=== PATIENT | female | born 1985 | race Caucasian/White ===

== ENCOUNTER → 2019-08-10 | Outpatient (CLI) | payer BC ==
[~2019-08-10] MED LIST: HOLD METFORMIN - RECEIVED CONTRAST 20 ML VIAL IV SCH; IOHEXOL 350 MG/ML 100 ML (OMNIPAQUE 350) VIAL IV ONE; NS 100 ML (IVPB) BAG IV ONE; diphenhydrAMINE 50 MG/ML INJ (BENADRYL) IM ONE; diphenhydrAMINE 50 MG/ML INJ (BENADRYL) ONE
--- NOTE | 2019-08-10 16:58 | Diagnostic Imaging Report ---
PROCEDURE: CT abdomen and pelvis with and without contrast. TECHNIQUE: Precontrast acquisitions were acquired through the abdomen and pelvis. Multiple contiguous axial images were obtained through the abdomen and pelvis after the administration of intravenous contrast. Auto Exposure Controls were utilized during the CT exam to meet ALARA standards for radiation dose reduction. INDICATION: Lower right flank pain with extension into the right inguinal region. COMPARISON: None. FINDINGS: The included portions of the lung bases show a 4 mm subpleural micronodule within the anterior margins of the right middle lobe (image 3, series 2). CT ABDOMEN: A normal appendix cannot be adequately identified and may be surgically absent. The small bowel loops are nondistended. A nonobstructive left renal calculus is noted. No renal calculi are seen on the right. The ureters cannot be followed in their entirety but no calculi are seen along the expected course of either ureter. Additionally, there is no hydroureteronephrosis or other evidence of obstruction. Benign-appearing bilateral renal cysts are noted. The adrenal glands, spleen, and pancreas have a normal CT appearance. There is a focal area of decreased attenuation and enhancement of the left lobe adjacent to the falciform ligament, consistent with focal fatty infiltrate. Otherwise, the liver is unremarkable as well. There is no loculated fluid collection, free fluid, or free air within the abdomen. No abnormal mesenteric or retroperitoneal adenopathy is seen. The osseous structures show no acute abnormalities. CT PELVIS: A radiopaque marker was placed in the anterior right inguinal region in the patient's area of palpable concern. No focal soft tissue masses or abnormal fluid collections are identified. There is no evidence of focal hernia. The urinary bladder is unopacified. No calculi are seen within the urinary bladder. There is no loculated fluid collection, free fluid, or free air within the pelvis. No abnormal lymph nodes are identified. The osseous structures show no acute abnormalities. IMPRESSION: 1. No focal soft tissue masses, fluid collections, or other abnormalities are seen to correspond to the patient's palpable area of concern in the anterior right inguinal region. Please note, subcutaneous lipomas may be inconspicuous on CT. Further characterization with focused sonographic evaluation may be of benefit. 2. Nonobstructive left renal calculus. 3. Focal fatty infiltrate of the left lobe of the liver. 4. Benign-appearing bilateral renal cysts. 5. Small micronodule within the included portions of the right middle lobe. If the patient is in a high-risk category such as history of smoking, one may want to consider a 1 year followup to ensure stability. Dictated by: Dictated on workstation # [id number]
== END ==
LOC: RAD 11:04
PROVIDERS: ATTEND Family Medicine
DX: N20.0 Calculus of kidney (principal); K76.0 Fatty (change of) liver, not elsewhere classified; N28.1 Cyst of kidney, acquired; R91.1 Solitary pulmonary nodule
CPT/HCPCS: 74178

== ENCOUNTER → 2020-02-07 | Outpatient (CLI) | payer BC ==
--- NOTE | 2020-02-07 13:59 | Diagnostic Imaging Report ---
INDICATION: Routine screening. COMPARISON: No prior mammograms are available for comparison. This is a baseline study. TECHNIQUE: 2D and 3D bilateral screening mammography was performed with CAD. FINDINGS: Both breasts are heterogeneously dense, limiting the sensitivity of mammography. A circumscribed density is identified in the upper and inner aspect of the right breast, best seen on tomographic images. The density is located approximately 5 cm from the nipple. The left breast is unremarkable. No spiculated mass or malignant appearing microcalcifications are seen. The axillae are unremarkable. IMPRESSION: Circumscribed density in the upper inner right breast. This has benign features and may represent a cyst or fibroadenoma. Further evaluation with ultrasound is recommended. ACR BI-RADS Category 0: Incomplete. (Needs additional imaging evaluation). Result letter will be mailed to the patient. Note: At least 10% of breast cancer is not imaged by mammography. Dictated by: Dictated on workstation # [id number]
== END ==
LOC: RAD 09:09
PROVIDERS: ATTEND Family Medicine
DX: Z12.31 Encounter for screening mammogram for malignant neoplasm of breast (principal)
CPT/HCPCS: 77063; 77067

== ENCOUNTER → 2020-02-15 | Outpatient (CLI) | payer BC ==
--- NOTE | 2020-02-15 10:19 | Diagnostic Imaging Report ---
INDICATION: Right breast density. Patient presents for further evaluation. COMPARISON: Correlation is made with the screening mammogram from 02/07/2020. TECHNIQUE: Sonographic interrogation of the upper and inner aspect of the right breast was performed. There is a tiny approximately 7 mm x 3 mm cyst at the 12 o'clock location 3 cm from the nipple. No definite nodule is identified in the upper inner right breast to correspond to the mammographic density. The mammographic density does, however, appear benign. No suspicious abnormality is seen. IMPRESSION: No suspicious sonographic abnormality is identified. A followup right mammogram in 6 months is recommended to confirm stability. ACR BI-RADS Category 3: Probably benign findings. Result letter will be mailed to the patient. Note: At least 10% of breast cancer is not imaged by mammography. Dictated by: Dictated on workstation # [id number]
== END ==
LOC: RAD 08:36
PROVIDERS: ATTEND Family Medicine
DX: N60.01 Solitary cyst of right breast (principal)

== ENCOUNTER → 2020-09-28 | Outpatient (CLI) | payer BC ==
--- NOTE | 2020-09-28 14:33 | Diagnostic Imaging Report ---
INDICATION: Right breast density. Patient presents for six-month follow-up. Correlation is made with prior exam from 02/07/2020. Unilateral right 2-D and 3-D diagnostic mammography was performed with CAD. Right breast remains heterogeneously dense, limiting sensitivity of mammography. Circumscribed nodule in the upper inner right breast at mid depth persists and shows no real change. No new mass is seen. No malignant appearing microcalcifications are identified. IMPRESSION: BI-RADS Category 0 Stable circumscribed nodule upper inner right breast mid depth. Further evaluation with ultrasound is recommended will be performed today. ACR BI-RADS Category 0: Incomplete. (Needs additional imaging evaluation). Result letter will be mailed to the patient. Note: At least 10% of breast cancer is not imaged by mammography. Dictated by: Dictated on workstation # [id number]
--- NOTE | 2020-09-28 15:45 | Diagnostic Imaging Report ---
INDICATION: Right breast density. CORRELATION is made with diagnostic mammogram earlier the same day as well as prior mammogram from 02/07/2020. Sonographic interrogation at the 2 o'clock location right breast was performed. There is a circumscribed, macrolobulated hypoechoic solid nodule 4 cm from the nipple measuring 8 mm x 6 mm x 5 mm. No internal vascularity is present. No posterior acoustic shadowing is present. No other masses are identified. This likely accounts for the circumscribed nodule noted on mammogram. IMPRESSION: BI-RADS Category 3. Circumscribed, macrolobulated solid nodule at the 2 o'clock location right breast, 4 cm from the nipple, corresponding with the mammographic abnormality. This has benign features and is most consistent with a fibroadenoma. This now shows 6 months of stability when compared with prior mammogram. Additional six-month follow-up for a 2 year interval is recommended to confirm stability. If patient elects, we could undergo ultrasound-guided core biopsy. Dictated by: Dictated on workstation # [id number]
== END ==
LOC: RAD 14:15
PROVIDERS: ATTEND Family Medicine
DX: N63.12 Unspecified lump in the right breast, upper inner quadrant (principal)
CPT/HCPCS: 76642; 77065; G0279

== ENCOUNTER 2020-10-15 05:35 | Outpatient (RCR) | payer BC ==
[~2020-10-15] VITALS: Ht 170.2 cm; Wt 88.6 kg
[~2020-10-15 05:35] MED LIST changes: +ESCI-2 PO; +ESTR1TAB24 PO; +ESTR2TAB PO; -HOLD METFORMIN - RECEIVED CONTRAST 20 ML VIAL IV SCH; -IOHEXOL 350 MG/ML 100 ML (OMNIPAQUE 350) VIAL IV ONE; +LEVO5TAB28 PO; -NS 100 ML (IVPB) BAG IV ONE; +TRZ50T PO; -diphenhydrAMINE 50 MG/ML INJ (BENADRYL) IM ONE; -diphenhydrAMINE 50 MG/ML INJ (BENADRYL) ONE
[2020-10-17] MEDS ORDERED: ACHD5005 PO (09:57)
== END 2020-10-15 10:04 | disposition home or self-care (01) ==
LOC: PREOP 05:35
PROVIDERS: ATTEND Surgery
DX: Z01.812 Encounter for preprocedural laboratory examination (principal); N63.10 Unspecified lump in the right breast, unspecified quadrant; Z20.822 Contact with and (suspected) exposure to COVID-19
CPT/HCPCS: 87635

== ENCOUNTER 2020-10-17 07:11 | Day surgery (SDC) | payer BC ==
[2020-10-17] VITALS (11 sets, daily range): BP systolic 114–148; BP diastolic 68–76
[~2020-10-17] VITALS: Ht 170.2 cm; Wt 88.6 kg
[2020-10-17] MEDS ORDERED: ceFAZolin INJECTION 1,000 MG in WATER (STERILE) FOR INJECTION 10 ML IV ONE (07:30)
[2020-10-17] MEDS ORDERED: LIDOCAINE 1% INJ 20 ML 20 ML VIAL INJ ONE (08:00)
[2020-10-17] MEDS: LACTATED RINGERS 1,000 ML IV PRN ×2 (08:15→09:55)
[2020-10-17] MEDS ORDERED: ONDANSETRON 4 MG/2 ML (SDV) Z0FRAN ONE (08:22)
[2020-10-17] MEDS ORDERED: LIDOCAINE PF 2% 5 ML (XYLOCAINE) VIAL ONE (08:22)
[2020-10-17] MEDS ORDERED: proPOfol 200 MG/20 ML (DIPRIVAN) VIAL IV ONE (08:22)
[2020-10-17] MEDS ORDERED: SEVOFLURANE (ULTANE) 15 ML INHAL SOLN ONE (08:22)
[2020-10-17] MEDS ORDERED: MIDAZOLAM 2 MG/2 ML (VERSED) VIAL ONE (08:23)
[2020-10-17] MEDS ORDERED: fentaNYL INJECTION 100 MCG/2 ML AMP ONE (08:23)
[2020-10-17] MEDS ORDERED: LIDOCAINE/EPI 1%-1:100,000 (XYLOCAINE) 50 ML ONE (08:30)
--- NOTE | 2020-10-17 09:06 | Progress Note-Pre Operative ---
Pre-Operative Progress Note H&P Reviewed The H&P was reviewed, patient examined and no changes noted. Time Seen by Provider: 09:02 Date H&P Reviewed: Oct 17, 2020 Time H&P Reviewed: 09:03 Pre-Operative Diagnosis: Right breast mass, right side marked RON JUAREZ DO Oct 17, 2020 09:06
[2020-10-17] MEDS ORDERED: ACHD5005 PO (09:57)
--- NOTE | 2020-10-17 09:57 | Progress Note-Post Operative ---
Post-Operative Progess Note Surgeon (s)/Reversing Mill Roller (s) Surgeon RON JUAREZ DO Reversing Mill Roller: BERTO García Pre-Operative Diagnosis Right breast mass, right side marked Post-Operative Diagnosis same pending pathology Procedure & Operative Findings Date of Procedure 10/17/20 Procedure Performed/Findings Exc Right breast mass with needle localization Anesthesia Type LMA Estimated Blood Loss Estimated blood loss (mL): scant Specimens/Packing Specimens Removed right breast mass with needle RON JUAREZ DO Oct 17, 2020 09:57
--- NOTE | 2020-10-17 09:59 | Discharge Inst-Surgical ---
Discharge Inst-Surgical Depart Medication/Instructions New, Converted or Re-Newed RX: RX Given to Pt/Family Patient Instructions Follow up Appt: Make appointment for 1 week. [phone] Instructions: No lifting greater than 20 pounds. No strenuous activity. May shower in 24 hours, no tub bath or soaking. Use incentive spirometer at home as directed. No Smoking Skin/Wound Care: May remove bandages in am. You need to leave the Dermabond on incision it will fall off on it's own. Symptoms to Report: Appetite Changes, Extremity Discoloration, Numbness/Tingling, Swelling Increased, Bleeding Excessive, Eyesight Changes, Pain Increased, Urine Color Change, Constipation(Persistent), Fever over 101 degree F, Pain/Pressure in chest, Urinating Difficulty, Cough Up/Vomit Blood, Heart Beat Irreg/Pounding, Pain/Pressure in jaw, Cramps in feet or legs, Lightheadedness, Pain/Pressure in shoulder, Diarrhea(Persistent), Memory Changes Suddenly, Questions/Concerns, Weight gain consecutive days, Dizziness/Fainting, Nausea/Vomiting, Shortness of Breath, Weight gain over 2 pounds If questions or concerns contact your physician Or seek help at emergency department. Activity Activity as Tolerated: Yes Activity Instructions: Avoid Stress to Incision Driving Instructions: No Driving/Refer to Dr. Medina Discharge Diet: No Restrictions Diet After 24 Hours: Clear Liquid if Nauseous If Any Problems/Questions/Issu: Contact Your Physician, Go to Emergency Room Skin/Wound Care Infection Signs and Symptoms: Increased Redness, Foul Odor of Wound, Increased Drainage, Skin Itchy or Has a Rash, Increased Swelling, Temperature Above 101 F Wound Care Comment: Wear a tight fitting bra 24 hours a day for next week, can take off to shower. Bathing Instructions: Shower Stitches/Avtar/Dermabond Dis: Dermabond Ice Pack: Ice On and Off Site (for pain) RON JUAREZ DO Oct 17, 2020 09:59
[2020-10-17] MEDS ORDERED: morphine INJ 10 MG/ML 1ML (SYR OR VIAL) IVP ONE (10:15)
[2020-10-17] MEDS ORDERED: ONDANSETRON 4 MG/2 ML (SDV) Z0FRAN IVP PRN (10:15)
--- NOTE | 2020-10-17 10:35 | Diagnostic Imaging Report ---
Right diagnostic mammogram INDICATION: Post needle localization The prior mammogram of 09/28/2020 there is a small asymmetry in the medial aspect of the right breast. This area was localized for biopsy purposes earlier today. On this exam the localization wire is seen in the region of the small asymmetry. IMPRESSION: The localization wire appears to be in the region of concern. A specimen radiograph would be recommended. Dictated by: Dictated on workstation # [id number]
--- NOTE | 2020-10-17 10:37 | Diagnostic Imaging Report ---
Ultrasound-guided needle localization Indication: Breast mass The recent right breast ultrasound exam performed on 09/28/2020 noted a 8 x 6 x 5 mm circumscribed microlobulated solid nodule in the 2 o'clock position approximately 4 cm from the nipple. Following aseptic preparation of the skin and administration of local anesthesia this area was localized for biopsy purposes using a 5 cm Kopans needle. The final images reveal that the tip of the localization wire is imbedded within the lesion. The patient tolerate procedure well and was dismissed in good condition. Impression: 1. There has been a successful localization of the hypoechoic lesion in the 2 o'clock position of the right breast. 2. A final pathology report is pending. Dictated by: Dictated on workstation # [id number]
--- NOTE | 2020-10-17 14:36 | Anesthesia-General Post-Op ---
General Patient Condition Mental Status/LOC: Same as Preop Cardiovascular: Satisfactory Nausea/Vomiting: Absent Respiratory: Satisfactory Pain: Controlled Complications: Absent Post Op Complications Complications None Follow Up Care/Instructions Patient Instructions None needed. Anesthesia/Patient Condition Patient Condition Patient was seen after the procedure and she was doing well, no complaints, stable vital signs, no apparent adverse anesthesia problems. SAM GRIMES DO Oct 17, 2020 14:36
--- NOTE | 2020-10-17 14:48 | OPERATIVE REPORT ---
DATE OF SERVICE: PREOPERATIVE DIAGNOSIS: Right breast mass. POSTOPERATIVE DIAGNOSIS: Right breast mass, pending pathology. PROCEDURE: Excision of right breast mass with needle localization. SURGEON: Preston Lilly DO TRANSPORTATION ASSOCIATE: Ebony Boateng MS4. ANESTHESIA: LMA. SPECIMEN: Right breast mass. BLOOD LOSS: Scant. FLUIDS: Per anesthesia. POSTOPERATIVE CONDITION: Stable. INDICATION FOR PROCEDURE: The patient is a 34-year-old female who has a history of previous breast mass removal. She had a mass in the right breast near where the area she had a previous one removed and it had grown in size. She did not want a biopsy, she wanted it completely removed. FINDINGS: The patient had a right breast mass localized with needle and removed and sent to pathology. PROCEDURE NOTE: After informed consent was obtained, the patient was first sent to radiology to have an ultrasound performed to place the needle. I looked at the ultrasound, could see that the needle was right either through or next to this mass, the right sided marked prior to surgery. She was then brought to the operating room, placed on the operating table in supine position, sterilely prepped and draped in normal fashion. The mass was palpated and the needle was coming in the upper inner quadrant, right about the 2 o'clock line, could feel what felt like a lump and the needle, infiltrated directly over this with local lidocaine and then around the area in a regional block. We made an incision with #15 blade, a concentric line, curvilinear to go along with the folds of the breast, #15 blade used, carried down through the skin into subcutaneous tissue, deepened down to subcutaneous tissue with Bovie electrocautery, creating flaps in either direction to be able to get down, then able to grasp the tissue surrounding the needle, had brought the needle through the skin into the incision and then grasped the tissue surrounding the needle and then dissected around this with Bovie electrocautery, able to completely remove this, looked like there was a small whitish area. There was probably the mass, right next to the needle. This was sent to pathology, felt around, did not really feel anything, but saw a little bit more tissue, elected to grasp this with Allis, dissect around this and then passed this off the table. Hemostasis obtained using Bovie electrocautery. Copiously irrigated with sterile water and then palpated around again, did not feel any further masses and at this point, elected to close the incision, closing with 4-0 undyed Monocryl, 3 interrupted subcuticular stitches and closed the skin with Dermabond and then pressure and fluff dressing placed. The patient tolerated the procedure. Sponge, instrument and needle count correct at the end of the case. She was transferred to recovery room in stable condition. Job ID: [id number] DocumentID: [id number] Dictated Date: 10/17/2020 11:16:16 Change Control Analyst Date: 10/17/2020 14:46:42 Dictated By: PRESTON LILLY DO
--- NOTE | 2020-10-18 07:22 | Diagnostic Imaging Report ---
Digital right breast surgical specimen. INDICATION: Surgical specimen from OR Single surgical specimen was received from the right breast from the OR. The specimen contains the localization wire and a vague area of slight increased density. I do suspect that the area in question has been adequately sampled. IMPRESSION: 1. The area in question appears to have been adequately sampled. A final pathology report is pending. 2. These results were discussed with Dr. Parikh. Dictated by: Dictated on workstation # [id number]
== END 2020-10-17 12:05 | disposition home or self-care (01) ==
LOC: SDC 07:11
PROVIDERS: ATTEND Surgery
DX: D24.1 Benign neoplasm of right breast (principal); F41.9 Anxiety disorder, unspecified; E66.9 Obesity, unspecified; Z68.30 Body mass index [BMI] 30.0-30.9, adult; Z79.899 Other long term (current) drug therapy; Z91.041 Radiographic dye allergy status; Z91.013 Allergy to seafood
CPT/HCPCS: 19120; 19285; 76098; 77065; 87081; 88305; 88307; G0279

== ENCOUNTER 2021-02-16 20:14 | Emergency (ER) | payer BC ==
[~2021-02-16] VITALS: Ht 170.1 cm; Wt 88.6 kg
[~2021-02-16 20:14] MED LIST changes: +ACHD5005 PO
--- NOTE | 2021-02-16 20:44 | ED General ---
General Chief Complaint: Allergic Reaction Stated Complaint: ALLERGIC REACTION Source of Information: Patient Exam Limitations: No Limitations History of Present Illness Date Seen by Provider: Feb 16, 2021 Time Seen by Provider: 20:14 Initial Comments To ER by private vehicle accompanied by state wilkins who met them on the highway. He escorted him to the hospital. Patient was out with her boyfriend eating when he states that she quit talking and stated that she had trouble breathing. He states there was no rash. He then loaded her into the car and called the patient's mother who met them on the highway as well with her own epinephrine pen. She gave the patient intramuscular epinephrine and they proceeded to the hospital. Upon arrival patient is being carried in and is limp accompanied by boyfriend and once arriving at the ER doors collapses at the floor and was carried the rest of the way by a supervisor insecticide and the patient's boyfriend. Mother reports that patient has a history of shellfish allergy that resulted from an IV contrast overdose. They just moved here. Mother reports that patient also has a history of anxiety. They also gave her 4 Benadryl tablets in route to the hospital. Timing/Duration: 1/2 Hour Severity: Moderate Associated Systoms: Denies Symptoms Allergies and Home Medications Allergies Coded Allergies: Iodinated Contrast Media (Verified Allergy, Unknown, Anaphylaxis, 10/12/20) shellfish derived (Verified Allergy, Unknown, 10/12/20) Home Medications Escitalopram Oxalate 10 Mg Tablet, 10 MG PO DAILY, (Reported) Estradiol 1 Mg Tablet, 1 MG PO DAILY, (Reported) Estradiol 2 Mg Tablet, 2 MG PO DAILY, (Reported) Hydrocodone Bit/Acetaminophen 1 Tab Tab, 1 TAB PO Q8H PRN for PAIN-MODERATE (5- 7) Prescribed by: RON JUAREZ on 10/17/20 0957 Levocetirizine Dihydrochloride 5 Mg Tablet, 5 MG PO DAILY, (Reported) Trazodone HCl 50 Mg Tablet, 50 MG PO HS, (Reported) Patient Home Medication List Home Medication List Reviewed: Yes Review of Systems Review of Systems Constitutional: see HPI EENTM: see HPI Respiratory: no symptoms reported Cardiovascular: no symptoms reported Genitourinary: no symptoms reported Musculoskeletal: no symptoms reported Skin: no symptoms reported Hematologic/Lymphatic: No Symptoms Reported Past Gkjzjvr-Jybrvg-Zesmuy Hx Patient Social History Alcohol Use: Denies Use Recent Hopitalizations: No Seasonal Allergies Seasonal Allergies: No Past Medical History Surgeries: Yes (R knee scope, c/s x2, DXLS, R breast lumpectomy) Appendectomy, Hysterectomy Respiratory: No Currently Using CPAP: No Currently Using BIPAP: No Cardiac: No Neurological: No Genitourinary: No Gastrointestinal: No Musculoskeletal: No Endocrine: No HEENT: No (glasses) Cancer: No Psychosocial: Yes Anxiety Integumentary: No Blood Disorders: No Physical Exam Vital Signs Capillary Refill : Height, Weight, BMI Height: '" Weight: lbs. oz. kg; 30.58 BMI Method: General Appearance: Anxious, Other (Arrives to ER, keeps eyes closed, tachypneic, tachycardic. Respiratory rate in the 30s with somewhat stridor like upper airway sounds. However when advised to slow her breathing (because she reports that her hands and feet are tingling) the sounds disappear. She is without wheezing or stridor after she was asked to slow her breathing. She has good air movement. Her heart rate over the next few minutes fell from 125 down to 85. Her oxygen is 100% on room air. Her blood pressure was 170/90. There is no rash.) Eyes: Bilateral Eye Normal Inspection, Bilateral Eye PERRL, Bilateral Eye EOMI Neck: Full Range of Motion, Normal Inspection Respiratory: No Accessory Muscle Use, No Respiratory Distress Cardiovascular: Normal Peripheral Pulses, Tachycardia Gastrointestinal: Non Tender, Soft Extremity: Normal Capillary Refill, Normal Inspection Neurologic/Psychiatric: Alert, Oriented x3 Skin: Normal Color, Warm/Dry Progress/Results/Core Measures Suspected Sepsis SIRS Temperature: Pulse: Respiratory Rate: Blood Pressure / Mean: Results/Orders Vital Signs/I&O Capillary Refill : Departure Communication (Admissions) 2042-It would seem that while eating out with her boyfriend she had a panic attack which was believed to be an allergic reaction and was treated with epinephrine which made her panic attack worse. After about 15 minutes in the emergency room and administration of Pepcid and Solu-Medrol her respiratory rate has slowed to normal, her heart rate has fallen to normal, her blood pressure has fallen to normal and her breathing is more normal. driver's license reviewing officer is still here. Impression Primary Impression: Allergic reaction Additional Impression: Anxiety Disposition: 01 HOME, SELF-CARE Condition: Stable Departure-Patient Inst. Decision time for Depature: 20:44 Referrals: VIRGIL SHAFFER MD (PCP/Family) Primary Care Physician Patient Instructions: Food Allergy, Anxiety, Adult (DC) Scripts Epinephrine (Epinephrine) 0.3 Mg/0.3 Ml Auto.injct 0.3 MG IJ PRN PRN for anaphylaxis, #2 EA Prov: BAN MARTINEZ APRN 02/16/21 BAN MARTINEZ APRN Feb 16, 2021 20:44
[2021-02-16] MEDS ORDERED: EPIN0.3P18 IJ (20:45)
[2021-02-16 20:52] LABS: BASOPHILS # (AUTO) 0.1 10^3/uL (0.0-0.1); BASOPHILS % (AUTO) 1 % (0-10); EOSINOPHILS # (AUTO) 0.1 10^3/uL (0.0-0.3); EOSINOPHILS % (AUTO) 1 % (0-10); HEMATOCRIT 42 % (35-52); HEMOGLOBIN 13.3 g/dL (11.5-16.0); LYMPHOCYTES # (AUTO) 6.2 10^3/uL (1.0-4.0); LYMPHOCYTES % (AUTO) 42 % (12-44); MEAN CORPUSCULAR HEMOGLOBIN 26 pg (25-34); MEAN CORPUSCULAR HGB CONC 32 g/dL (32-36); MEAN CORPUSCULAR VOLUME 81 fL (80-99); MEAN PLATELET VOLUME 10.1 fL (9.0-12.2); MONOCYTES % (AUTO) 7 % (0-12); NEUTROPHILS # (AUTO) 7.1 10^3/uL (1.8-7.8); NEUTROPHILS % (AUTO) 49 % (42-75); PLATELET COUNT 331 10^3/uL (130-400); WHITE BLOOD COUNT 14.6 10^3/uL (4.3-11.0)
[2021-02-16] MEDS ORDERED: methylPREDNISolone 125 MG (Solu-MEDROL) VIAL IVP ONE (21:00)
[2021-02-16] MEDS ORDERED: FAMOTIDINE 20MG/2ML IV (PEPCID) IVP ONE (21:00)
[2021-02-16 21:05] LABS: BUN/CREATININE RATIO 11; CALCIUM 10.3 MG/DL (8.5-10.1); CARBON DIOXIDE 23 MMOL/L (21-32); CHLORIDE 102 MMOL/L (98-107); CREATININE SERUM 0.97 MG/DL (0.60-1.30); GFR ESTIMATED > 60; GLUCOSE 117 MG/DL (70-105); POTASSIUM 2.9 MMOL/L (3.6-5.0); SODIUM 140 MMOL/L (135-145)
[2021-02-16] MEDS ORDERED: KCL 20 MEQ TAB (K-DUR) PO ONE (21:15)
[2021-02-16 21:50] VITALS: BP 127/80
[2021-02-16 22:13] LABS: LYMPHOCYTES % (MANUAL) 50 %; MONOCYTES % (MANUAL) 3 %; NEUTROPHILS % (MANUAL) 47 %; RBC MORPH NORMAL
== END 2021-02-16 21:52 | disposition home or self-care (01) ==
LOC: EDUNIT# 20:16 → ER 20:18
DX: T78.1XXA Other adverse food reactions, not elsewhere classified, initial encounter (principal); F41.9 Anxiety disorder, unspecified
CPT/HCPCS: 36415; 80048; 84703; 85007; 85027

== ENCOUNTER 2021-07-13 13:32 | Emergency (ER) | payer BC ==
[~2021-07-13] VITALS: Ht 170 cm; Wt 95.2 kg
[~2021-07-13 13:32] MED LIST changes: +EPIN0.3P18 IJ; -ESTR2TAB PO; +ESTR2TAB3 PO
--- OUTSIDE RECORDS SUMMARY | 2021-07-13 13:38 | XMS REPORT | Clinical Summary ---
Author Author [facility] Address Unknown Phone Unavailable Care Team Providers Care School Bus Mechanic Name Role Phone PCP Unavailable Allergies Comments Active Allergy Reactions Severity Noted Date Anaphylaxis Iodine Anaphylaxis Shellfish-Derived Products Medications End Date Status Medication Sig Dispensed Refills Start Date Active Multiple Vitamin One orally 0 0 (MULTI-VITAMINS) TABS daily 8 Active amoxicillin-clavulanate One orally 20 0 (AUGMENTIN) 875-125 MG twice daily 9 Active .reconcile (MEDICATION No Sig 1 0 LIST IMPORTED) 3 Active Problems Not on file Social History Date Tobacco Use Types Packs/Day Years Used Never Assessed Sex Assigned at Date Recorded Not on file Last Filed Vital Signs Reading Time Taken Comments Vital Sign 110/80 02/02/2009 3:40 PM CDT Blood Pressure - - Pulse - - Temperature - - Respiratory Rate - - Oxygen Saturation - - Inhaled Oxygen Concentration 94.6 kg (208 lb 8 oz) 02/02/2009 3:40 PM CDT Weight 168.9 cm (5' 6.5") 09/12/2008 8:50 AM REFINERY OPERATOR VISBREAKING Height 33.15 09/12/2008 8:50 AM REFINERY OPERATOR VISBREAKING Body Mass Index Plan of Treatment Health Maintenance Due Date Last Done Comments Varicella Vaccines (1 of 12/24/1988 2 - 2-dose childhood series) COVID-19 Vaccine (1) 12/24/1992 Hepatitis C Screening 12/24/2005 DTaP,Tdap,and Td Vaccines 12/24/2006 (1 - Tdap) MMR Vaccines-Adult 12/24/2006 Cervical Cancer Screening 06/22/2011 06/22/2008 Influenza Vaccine (#1) 2021 Pneumo-Vaccine: 65+Yrs (1 12/24/2052 of 1 - PPSV23) HIB Vaccines Aged Out No longer eligible based on patient's age to complete this topic IPV Vaccines Aged Out No longer eligible based on patient's age to complete this topic Meningococcal Vaccine Aged Out No longer eligib le based on patient's age to complete this topic Pneumo-Vaccine: Peds (0-5 Aged Out No longer el igible based on patient's age to Yrs) & At-Risk Patients complete this topic (6-64 Yrs) Rotavirus Vaccines Aged Out No longer eligible based on patient's age to complete this topic Results Not on filefrom Last 3 Months
[2021-07-13] MEDS ORDERED: KETOROLAC 60 MG/2 ML VIAL IM ONE (14:00)
[2021-07-13] MEDS ORDERED: PROCHLORPERAZINE 10 MG/2ML INJ (COMPAZINE) IM ONE (14:00)
[2021-07-13] MEDS ORDERED: diphenhydrAMINE 50 MG/ML INJ (BENADRYL) IVP ONE (14:00)
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
[2021-07-13] MEDS ORDERED: diphenhydrAMINE 50 MG/ML INJ (BENADRYL) IM ONE (14:15)
--- NOTE | 2021-07-13 14:46 | Diagnostic Imaging Report ---
PROCEDURE: CT head without contrast. TECHNIQUE: Multiple contiguous axial images were obtained through the brain without the use of intravenous contrast. Auto Exposure Controls were utilized during the CT exam to meet ALARA standards for radiation dose reduction. INDICATION: Head injury with nausea. COMPARISON: None. FINDINGS: There is no intracerebral hemorrhage. There is no hydrocephalus. There is no calvarial fracture deformity. There is no pneumocephalus. There is no hemosinus. The orbital contents unremarkable. The basilar cisterns are patent. There is no sulcal effacement. There was no evidence for an elevation of the intracerebral pressures. There is no mass or mass effect. Ventricular system nondilated and nondisplaced. IMPRESSION: Unremarkable CT head. No posttraumatic sequelae or acute abnormalities identified. Dictated by: Dictated on workstation # [id number]
[2021-07-13 15:09] VITALS: BP 118/70
== END 2021-07-13 14:57 | disposition home or self-care (01) ==
LOC: EDUNIT# 13:32 → ER 13:34
DX: S06.0X0A Concussion without loss of consciousness, initial encounter (principal); F41.9 Anxiety disorder, unspecified; Z79.899 Other long term (current) drug therapy; W22.8XXA Striking against or struck by other objects, initial encounter
CPT/HCPCS: 70450

== ENCOUNTER 2022-01-18 20:34 | Emergency (ER) | payer BC ==
[~2022-01-18] VITALS: Ht 172.7 cm; Wt 95.0 kg
[2022-01-18] MEDS ORDERED: ONDANSETRON 4 MG/2 ML (SDV) Z0FRAN IVP ONE (21:15)
[2022-01-18] MEDS ORDERED: KETOROLAC 30 MG/ML VIAL IVP ONE (21:15)
[2022-01-18] MEDS ORDERED: NS IV 1000 ML 1,000 ML IV SCH (21:15)
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
[2022-01-18 21:26] LABS: BASOPHILS # (AUTO) 0.1 10^3/uL (0.0-0.1); BASOPHILS % (AUTO) 1 % (0-10); EOSINOPHILS # (AUTO) 0.1 10^3/uL (0.0-0.3); EOSINOPHILS % (AUTO) 1 % (0-10); HEMATOCRIT 40 % (35-52); HEMOGLOBIN 12.9 g/dL (11.5-16.0); LYMPHOCYTES % (AUTO) 31 % (12-44); MEAN CORPUSCULAR HEMOGLOBIN 25 pg (25-34); MEAN CORPUSCULAR HGB CONC 32 g/dL (32-36); MEAN CORPUSCULAR VOLUME 79 fL (80-99); MEAN PLATELET VOLUME 9.9 fL (9.0-12.2); MONOCYTES # (AUTO) 0.7 10^3/uL (0.0-1.0); MONOCYTES % (AUTO) 7 % (0-12); NEUTROPHILS # (AUTO) 5.9 10^3/uL (1.8-7.8); NEUTROPHILS % (AUTO) 60 % (42-75); PLATELET COUNT 235 10^3/uL (130-400); WHITE BLOOD COUNT 9.8 10^3/uL (4.3-11.0)
[2022-01-18 21:37] LABS: AMPHETAMINE SCREEN, URINE NEGATIVE (NEGATIVE); BARBITURATE SCREEN URINE NEGATIVE (NEGATIVE); BENZODIAZEPINES SCREEN URINE NEGATIVE (NEGATIVE); CANNABINOID SCREEN, URINE NEGATIVE (NEGATIVE); COCAINE SCREEN URINE NEGATIVE (NEGATIVE); METHADONE STAT NEGATIVE (NEGATIVE); OPIATE SCREEN URINE NEGATIVE (NEGATIVE); OXYCODONE STAT NEGATIVE (NEGATIVE); PROPOXYPHENE STAT NEGATIVE (NEGATIVE); TRICYCLIC ANTIDEPRESSANTS SCRE NEGATIVE (NEGATIVE)
[2022-01-18 21:46] LABS: ALBUMIN 4.1 GM/DL (3.2-4.5); BILIRUBIN,TOTAL 0.2 MG/DL (0.1-1.0); CALCIUM 9.1 MG/DL (8.5-10.1); CREATININE SERUM 0.7 MG/DL (0.60-1.30); POTASSIUM 3.6 MMOL/L (3.6-5.0); TOTAL PROTEIN 7.3 GM/DL (6.4-8.2)
[2022-01-18] MEDS ORDERED: RX-ONDANSETRON 4 MG ODT (ZOFRAN) PPK #4 PO STA (22:08)
[2022-01-18 22:50] VITALS: BP 125/87
== END 2022-01-18 22:58 | disposition home or self-care (01) ==
LOC: EDUNIT# 20:34 → ER 20:37
DX: T74.21XA Adult sexual abuse, confirmed, initial encounter (principal); Y07.59 Other non-family member, perpetrator of maltreatment and neglect
CPT/HCPCS: 80053; 80306; 85025; 99284; G0480; 36415; 80320

== ENCOUNTER → 2022-10-17 | Outpatient (CLI) | payer BC ==
--- NOTE | 2022-10-20 13:59 | Diagnostic Imaging Report ---
EXAMINATION: 3D bilateral screening mammogram with CAD, INDICATION: Screening. COMPARISON: This study was compared to the prior exams of 09/28/2020 and 02/07/2020. PERSONAL HISTORY: At this time, there are no current complaints. FINDINGS: The baseline screening mammogram performed on 02/07/2020 noted a small circumscribed density in the upper inner aspect of the right breast. The excisional biopsy of the right breast performed on 10/17/2020 noted a benign-appearing fibroadenoma. On this exam, the nodular density seen on the previous baseline mammogram is difficult to appreciate. The fibroglandular tissue in each breast is heterogeneously dense. This does limit the sensitivity of this exam. There is no primary or secondary sign of malignancy noted. IMPRESSION: There is no evidence for malignancy. ACR BI-RADS Category 1: Negative. Result letter will be mailed to the patient. Note: At least 10% of breast cancer is not imaged by mammography. Dictated by: Dictated on workstation # [id number]
== END ==
LOC: RAD 13:11
PROVIDERS: ATTEND Family Medicine
DX: Z12.31 Encounter for screening mammogram for malignant neoplasm of breast (principal)
CPT/HCPCS: 77063; 77067

== ENCOUNTER 2023-01-29 12:50 | Inpatient (IN) | payer BC ==
[~2023-01-29] VITALS: Ht 170.2 cm; Wt 115.2 kg
[2023-01-29] MEDS ORDERED: ACETAMINOPHEN 500 MG TAB (TYLENOL) PO PRN (13:15)
[2023-01-29] MEDS ORDERED: CEFEPIME INJECTION 1,000 MG in NS (IVPB) 50 ML IV ONE (13:15)
[2023-01-29] MEDS ORDERED: IBUPROFEN 800 MG (MOTRIN) TAB PO ONE (13:15)
[2023-01-29] MEDS ORDERED: NS IV 1000 ML 1,000 ML IV STA (13:16)
--- NOTE | 2023-01-29 13:24 | ED Cough/URI ---
General Chief Complaint: Fever-Adult/Adol Stated Complaint: FEVER | DISORIENTED | NAUSEA Nursing Triage Note: PT TO RM 8 BY WC WITH COMPLAINT OF HIGH FEVER, BACK PAIN, VOMITING, AND HEADACHE. STATES STARTED A FEW DAYS AGO. S/O STATES PT HAS HAD CONFUSION. Source: patient Exam Limitations: no limitations (JOE PERKINS) History of Present Illness Date Seen by Provider: Jan 29, 2023 Time Seen by Provider: 13:22 Initial Comments Patient is a 37-year-old female who presents to the ED of flulike symptoms. She reports feeling feverish, back pain, vomiting and headache. Symptoms started yesterday with left flank pain radiating to left lower abdomen. Patient states she drank cranberry juice and pain resolved. Started having body aches, chills and weakness. Woke up with generalized head pain this morning subjective fever feels warm with nausea. Vomited yesterday secondary to the back pain. History of kidney stones. She denies of any dysuria, hematuria, increased urinary frequency. Generalized abdominal discomfort. She reports sensitivity to light with her headache and neck stiffness and pain. Patient denies of any diarrhea, cough, sore throat, ear pain, lower extremity weakness or sensory changes, unilateral muscle weakness. Patient was bitten by a tick 2 weeks ago. Denies of any rash (JOE PERKINS) Allergies and Home Medications Allergies Coded Allergies: Iodinated Contrast Media (Verified Allergy, Unknown, Anaphylaxis, 10/12/20) shellfish derived (Verified Allergy, Unknown, 10/12/20) Patient Home Medication List Home Medication List Reviewed: Yes (JOE PERKINS) Estradiol (Estradiol Tablet) 1 Mg Tablet, 1 MG PO TID, (Reported) Entered as Reported by: ALICJA MAXWELL on 10/12/20 1101 Last Action: Reviewed Trazodone HCl (Trazodone HCl) 100 Mg Tablet, 100 MG PO HS, (Reported) Entered as Reported by: VICTORINA CURRAN on 01/30/23 1518 Last Action: Reviewed Discontinued Medications Epinephrine (Epinephrine) 0.3 Mg/0.3 Ml Auto.injct, 0.3 MG IJ PRN PRN for anaphylaxis Discontinued Reason: No Longer Taking Prescribed by: BAN MARTINEZ on 02/16/212044 Last Action: Discontinued Escitalopram Oxalate (Escitalopram Oxalate) 10 Mg Tablet, 10 MG PO DAILY, (Reported) Discontinued Reason: No Longer Taking Entered as Reported by: ALICJA MAXWELL on 10/12/201100 Last Action: Discontinued Estradiol (Estradiol Tablet) 2 Mg Tablet, 2 MG PO DAILY, (Reported) Discontinued Reason: No Longer Taking Entered as Reported by: ALICJA MAXWELL on 10/12/201100 Last Action: Discontinued Hydrocodone Bit/Acetaminophen (HYDROcodone/APAP 5 MG/325 MG TAB) 1 Tab Tab, 1 TAB PO Q8H PRN for PAIN-MODERATE (5-7) Discontinued Reason: No Longer Taking Prescribed by: RON JUAREZ on 10/17/20 0957 Last Action: Discontinued Levocetirizine Dihydrochloride (Xyzal) 5 Mg Tablet, 5 MG PO DAILY, (Reported) Discontinued Reason: No Longer Taking Entered as Reported by: ALICJA MAXWELL on 10/12/201100 Last Action: Discontinued Trazodone HCl (Trazodone HCl) 50 Mg Tablet, 50 MG PO HS, (Reported) Discontinued Reason: No Longer Taking Entered as Reported by: ALICJA MAXWELL on 10/12/201100 Last Action: Discontinued Review of Systems Review of Systems Constitutional: No chills, No diaphoresis, No malaise, No weakness EENTM: other (Photophobia.); No blurred vision, No double vision Respiratory: No cough, No dyspnea on exertion Cardiovascular: No chest pain, No edema, No other Gastrointestinal: abdominal pain; No constipation, No diarrhea; nausea, vomiting Genitourinary: No decreased output, No discharge, No dysuria, No frequency, No hematuria Musculoskeletal: back pain; No joint pain Skin: No change in hair/nails (JOE PERKINS) All Other Systems Reviewed Negative Unless Noted: Yes (JOE PERKINS) Past Mfcqujc-Hwiktp-Mavuwx Hx Patient Social History Tobacco Use?: No Use of E-Cig and/or Vaping dev: No Substance use?: No Alcohol Use?: No Pt feels they are or have been: No (JOE PERKINS) Seasonal Allergies Seasonal Allergies: No (JOE PERKINS) Past Medical History Surgeries: Yes (R knee scope, c/s x2, DXLS, R breast lumpectomy) Appendectomy, Hysterectomy Respiratory: No Currently Using CPAP: No Currently Using BIPAP: No Cardiac: No Neurological: No WAREHOUSE TECHNICIAN History: Hysterectomy Genitourinary: No Gastrointestinal: No Musculoskeletal: No Endocrine: No HEENT: No (glasses) Cancer: No Psychosocial: Yes Anxiety Integumentary: No Blood Disorders: No (JOE PERKINS) Physical Exam Vital Signs - First Documented 01/29/23 12:56 Temp 41.0 Pulse 124 Resp 22 B/P (MAP) 125/71 (89) Pulse Ox 99 O2 Delivery Room Air (KAYKAY IBRAHIM MD) Capillary Refill : Less Than 3 Seconds (JOE PERKINS) Height: '" Weight: lbs. oz. kg; 39.00 BMI Method: General Appearance: WD/WN, no apparent distress Eyes: Bilateral Eye Normal Inspection, Bilateral Eye PERRL, Bilateral Eye EOMI HEENT: PERRL/EOMI, normal ENT inspection, TMs normal, pharynx normal Neck: other (Pain with flexion extension.) Respiratory: chest non-tender, lungs clear, normal breath sounds, no respiratory distress Cardiovascular: no edema, no gallop, no JVD, tachycardia Gastrointestinal: normal bowel sounds, non tender, soft, no organomegaly Extremities: normal range of motion, non-tender, normal inspection Neurologic/Psychiatric: automatic log cut off sawyer II-XII nml as tested, no motor/sensory deficits, alert, normal mood/affect, oriented x 3 Skin: other (Or) (JOE PERKINS) Focused Exam Lactate Level 01/29/23 13:00: Lactic Acid Level 1.03 (KAYKAY IBRAHIM MD) Lactic Acid Level Laboratory Tests Test 01/29/23 13:00 Lactic Acid Level 1.03 MMOL/L (0.50-2.00) (KAYKAY IBRAHIM MD) Progress/Results/Core Measures Suspected Sepsis SIRS Temperature: Pulse: 124 Respiratory Rate: 22 Laboratory Tests 01/29/23 13:00: White Blood Count 10.8 Blood Pressure 125 /71 Mean: 89 01/29/23 13:00: Lactic Acid Level 1.03 Laboratory Tests 01/29/23 13:00: Creatinine 0.84, INR Comment 1.0, Platelet Count 234, Total Bilirubin 0.4 (JOE PERKINS) Results/Orders Lab Results Laboratory Tests Test 01/29/23 13:00 01/29/23 13:02 01/29/23 13:18 01/29/23 14:17 Range/Units White Blood Count 10.8 4.3-11.0 10^3/uL Red Blood Count 4.74 3.80-5.11 10^6/uL Hemoglobin 11.1 L 11.5-16.0 g/dL Hematocrit 35 35-52 % Mean Corpuscular Volume 74 L 80-99 fL Mean Corpuscular Hemoglobin 23 L 25-34 pg Mean Corpuscular Hemoglobin Concent 32 32-36 g/dL Red Cell Distribution Width 14.5 10.0-14.5 % Platelet Count 234 130-400 10^3/uL Mean Platelet Volume 9.7 9.0-12.2 fL Immature Granulocyte % (Auto) 1 % Neutrophils (%) (Auto) 80 H 42-75 % Lymphocytes (%) (Auto) 10 L 12-44 % Monocytes (%) (Auto) 9 0-12 % Eosinophils (%) (Auto) 0 0-10 % Basophils (%) (Auto) 0 0-10 % Neutrophils # (Auto) 8.6 H 1.8-7.8 10^3/uL Lymphocytes # (Auto) 1.1 1.0-4.0 10^3/uL Monocytes # (Auto) 1.0 0.0-1.0 10^3/uL Eosinophils # (Auto) 0.0 0.0-0.3 10^3/uL Basophils # (Auto) 0.0 0.0-0.1 10^3/uL Immature Granulocyte # (Auto) 0.1 0.0-0.1 10^3/uL Prothrombin Time 13.5 12.2-14.7 SEC INR Comment 1.0 0.8-1.4 Activated Partial Thromboplast Time 31 24-35 SEC Sodium Level 134 L 135-145 MMOL/L Potassium Level 3.6 3.6-5.0 MMOL/L Chloride Level 102 98-107 MMOL/L Carbon Dioxide Level 23 21-32 MMOL/L Anion Gap 9 5-14 MMOL/L Blood Urea Nitrogen 11 7-18 MG/DL Creatinine 0.84 0.60-1.30 MG/DL Estimat Glomerular Filtration Rate 93 BUN/Creatinine Ratio 13 Glucose Level 95 70-105 MG/DL Lactic Acid Level 1.03 0.50-2.00 MMOL/L Calcium Level 9.2 8.5-10.1 MG/DL Corrected Calcium 9.1 8.5-10.1 MG/DL Total Bilirubin 0.4 0.1-1.0 MG/DL Aspartate Amino Transf (AST/SGOT) 40 H 5-34 U/L Alanine Aminotransferase (ALT/SGPT) 20 0-55 U/L Alkaline Phosphatase 106 40-136 U/L C-Reactive Protein High Sensitivity 5.65 H 0.00-0.50 MG/DL Total Protein 7.1 6.4-8.2 GM/DL Albumin 4.1 3.2-4.5 GM/DL Influenza Type A (RT-PCR) Not Detected Not Detecte Influenza Type B (RT-PCR) Not Detected Not Detecte SARS-CoV-2 RNA (RT-PCR) Not Detected Not Detecte Urine Color YELLOW Urine Clarity CLEAR Urine pH 7.0 5-9 Urine Specific [place] 1.010 L 1.016-1.022 Urine Protein NEGATIVE NEGATIVE Urine Glucose (UA) NEGATIVE NEGATIVE Urine Ketones 1+ H NEGATIVE Urine Nitrite NEGATIVE NEGATIVE Urine Bilirubin NEGATIVE NEGATIVE Urine Urobilinogen 0.2 < = 1.0 MG/DL Urine Leukocyte Esterase NEGATIVE NEGATIVE Urine RBC (Auto) TRACE-I H NEGATIVE Urine RBC RARE /HPF Urine WBC NONE /HPF Urine Squamous Epithelial Cells 5-10 /HPF Urine Crystals NONE /LPF Urine Bacteria TRACE /HPF Urine Casts NONE /LPF Urine Mucus NEGATIVE /LPF Urine Culture Indicated CULTURE PENDING Urine Opiates Screen NEGATIVE NEGATIVE Urine Oxycodone Screen NEGATIVE NEGATIVE Urine Methadone Screen NEGATIVE NEGATIVE Urine Propoxyphene Screen NEGATIVE NEGATIVE Urine Barbiturates Screen NEGATIVE NEGATIVE Ur Tricyclic Antidepressants Screen NEGATIVE NEGATIVE Urine Phencyclidine Screen NEGATIVE NEGATIVE Urine Amphetamines Screen NEGATIVE NEGATIVE Urine Methamphetamines Screen NEGATIVE NEGATIVE Urine Benzodiazepines Screen NEGATIVE NEGATIVE Urine Cocaine Screen NEGATIVE NEGATIVE Urine Cannabinoids Screen NEGATIVE NEGATIVE Test 01/29/23 19:43 Range/Units Body Fluid Slide Review Yes CSF Tube Number 4 CSF Appearance CLEAR CSF Color COLORLESS CSF WBC 0.004 0-0.005 10^3/uL CSF RBC 0.000 0-0 10^6/uL CSF Mononuclear Cells % (Auto) 75.0 % CSF Polynuclear WBCs (%) 25.0 % CSF Glucose 62 50-80 MG/DL CSF Total Protein 42 H 15-40 MG/DL (KAYKAY IBRAHIM MD) Micro Results Microbiology 01/29/23 Gram Stain - Final, Resulted 01/29/23 CSF Culture, Resulted Pending (KAYKAY IBRAHIM MD) My Orders Orders - KAYKAY IBRAHIM MD Hs C Reactive Protein (01/29/23 16:37) (KAYKAY IBRAHIM MD) Medications Given in ED (KAYKAY IBRAHIM MD) Vital Signs/I&O 01/29/23 01/29/23 01/29/23 01/29/23 12:56 13:20 13:20 19:50 Temp 41.0 41.0 41.0 37.3 Pulse 124 Resp 22 B/P (MAP) 125/71 (89) Pulse Ox 99 O2 Delivery Room Air 01/29/23 01/29/23 01/29/23 20:52 21:11 21:11 Temp 37.3 38.8 Pulse 112 110 Resp 20 18 B/P (MAP) 117/105 141/78 (99) Pulse Ox 100 100 O2 Delivery Room Air Room Air Room Air 01/30/23 00:00 Intake Total 1100 ml Balance 1100 ml (KAYKAY IBRAHIM MD) Vital Signs/I&O Capillary Refill : Less Than 3 Seconds (JOE PERKINS) Blood Pressure Mean: 89 Departure Communication (PCP) Reviewed previous ER visits, H&P, lab testing. Differential diagnosis of nephrolithiasis, urethritis, cystitis, pyelonephritis, meningitis, viral syndrome, pneumonia. Patient with left flank pain with radiation to left lower quadrant yesterday with vomiting. Woke up this morning with headache, neck stiffness feeling feverish. According to fianc patient appeared confused. Responding to questions. Sluggish. Patient with photophobia. No focal neural deficits. Vomiting yesterday with a episode today. After talking to she was bitten by a tick 2 weeks ago. On arrival she was tachycardic with a temperature rectal 41 Celsius. She was given Tylenol and ibuprofen. Patient met SIRS criteria with tachycardia and fever. Patient with neck stiffness pain with movement photophobia. Rates 10 out of 10 head pain. She has no current abdominal pain or flank pain at this time. Blood cultures ordered. Lactic acid. General lab work. CBC grossly unremarkable. Normal white blood count, hemoglobin, platelets. Chemistry grossly unremarkable with a sodium 134. Normal lactic acid. CRP of 5. Urinalysis trace hematuria. No evidence of i nfection. COVID influenza negative. Chest x-ray negative for pneumonia. Due to the head pain CT scan head was ordered which was unremarkable. CT abdomen pelvis showed There is a nonobstructing 8 mm stone in the lower pole of the left kidney. No ureteral stones or obstructive uropathy. Left perinephric and periureteral stranding concerning for pyelonephritis. Due to normal urinalysis and normal white blood count unlikely pyelonephritis. Tick panel was ordered. Due to the severe head pain, high fever, meningeal signs lumbar puncture is warranted. Patient agreed to consent to proceed. Discussed the benefits and complications. She acknowledges. She did receive 2 g of Rocephin initially due to the length of getting the lumbar puncture. Lumbar puncture was performed by Wojciech MONCADA CRNA. Opening pressure 25. CSF fluid appeared clear. CSF fluid with no evidence of white blood cells, red blood cells. Glucose 62, protein 42. Unlikely bacterial due to the results. Added doxycycline 100 mg twice daily prophylactically for tickborne illness. Patient was discussed with Dr. Gunter who agreed to accept patient for fever of unknown origin and pending cultures. Continue with antibiotics. Patient will be admitted for further evaluation. Patient headache, photophobia and fever did improve. Once fever improved her headache and photophobia improved. (JOE PERKINS) Impression Primary Impression: Fever of unknown origin Disposition: ADMITTED INPATIENT Condition: Stable Admissions Decision to Admit Reason: Admit from ER (General) Decision to Admit/Date: Jan 29, 2023 Time/Decision to Admit Time: 17:00 (JOE PERKINS) Departure-Patient Inst. Referrals: NO,LOCAL PHYSICIAN (PCP/Family) Primary Care Physician ATTENDING PHYSICIAN NOTE: I was physically present as attending physician in the emergency department during the care of this patient. I discussed this case with KORY Terry. I agreed that LP was appropriate given her presentation. I advised LP be performed by a member of the anesthesia staff given her BMI. I did not personally interview or examine this patient. I was not otherwise directly involved in the decision making or delivery of care for this patient. (KAYKAY IBRAHIM MD) JOE PERKINS Jan 29, 2023 13:24 KAYKAY IBRAHIM MD Jan 29, 2023 18:23
[2023-01-29 13:30] LABS: BASOPHILS % (AUTO) 0 % (0-10); EOSINOPHILS % (AUTO) 0 % (0-10); HEMATOCRIT 35 % (35-52); HEMOGLOBIN 11.1 g/dL (11.5-16.0); LYMPHOCYTES # (AUTO) 1.1 10^3/uL (1.0-4.0); LYMPHOCYTES % (AUTO) 10 % (12-44); MEAN CORPUSCULAR HEMOGLOBIN 23 pg (25-34); MEAN CORPUSCULAR HGB CONC 32 g/dL (32-36); MEAN CORPUSCULAR VOLUME 74 fL (80-99); MEAN PLATELET VOLUME 9.7 fL (9.0-12.2); MONOCYTES % (AUTO) 9 % (0-12); NEUTROPHILS # (AUTO) 8.6 10^3/uL (1.8-7.8); NEUTROPHILS % (AUTO) 80 % (42-75); PLATELET COUNT 234 10^3/uL (130-400); WHITE BLOOD COUNT 10.8 10^3/uL (4.3-11.0)
[2023-01-29 13:35] LABS: ALBUMIN 4.1 GM/DL (3.2-4.5); POTASSIUM 3.6 MMOL/L (3.6-5.0); PROTHROMBIN TIME PATIENT 13.5 SEC (12.2-14.7)
[2023-01-29 13:37] LABS: CALCIUM 9.2 MG/DL (8.5-10.1)
[2023-01-29 13:38] LABS: TOTAL PROTEIN 7.1 GM/DL (6.4-8.2)
[2023-01-29 13:40] LABS: BILIRUBIN,TOTAL 0.4 MG/DL (0.1-1.0)
[2023-01-29 13:41] LABS: CREATININE SERUM 0.84 MG/DL (0.60-1.30)
[2023-01-29] MEDS ORDERED: cefTRIAXone PRE-MIX 50 ML IV STA ×2 (13:45→17:05)
--- NOTE | 2023-01-29 13:46 | Diagnostic Imaging Report ---
INDICATION: Cough EXAM: Portable chest at 1:38 PM FINDINGS: The heart size and pulmonary vascularity are normal. Lungs are clear. There are no effusions or pneumothoraces. IMPRESSION: No acute abnormalities in the chest. Dictated by: Dictated on workstation # [id number]
[2023-01-29 14:24] LABS: BILIRUBIN,URINE NEGATIVE (NEGATIVE); CLARITY,URINE CLEAR; COLOR,URINE YELLOW; GLUCOSE, URINE (UA) NEGATIVE (NEGATIVE); KETONES,URINE 1+ (NEGATIVE); LEUKOCYTE ESTERASE ,URINE NEGATIVE (NEGATIVE); NITRITE,URINE NEGATIVE (NEGATIVE); PROTEIN,URINE NEGATIVE (NEGATIVE)
[2023-01-29 14:30] LABS: BACTERIA,URINE TRACE /HPF; RBC,URINE RARE /HPF
--- NOTE | 2023-01-29 14:30 | Diagnostic Imaging Report ---
INDICATION: headache, confusion TECHNIQUE: Routine non contrast-enhanced axial images were obtained from the skull base to the vertex. Auto Exposure Controls were utilized during the CT exam to meet ALARA standards for radiation dose reduction COMPARISON: 07/13/2021 FINDINGS: The ventricles and cortical sulci are normal in size and contour. There is no midline shift or mass-effect. No acute intra-axial hemorrhage is seen. There are no abnormal areas of increased or decreased density to suggest acute hemorrhage or edema. No extra-axial masses or collections are present. The bony calvarium is intact. The visualized paranasal sinuses are unremarkable. The mastoid air cells are clear. IMPRESSION: 1. No acute intracranial abnormality. No CT evidence of mass, acute infarct or intracranial hemorrhage. Dictated by: Dictated on workstation # [id number]
--- NOTE | 2023-01-29 14:41 | Diagnostic Imaging Report ---
CT ABD/PELVIS WO (KIDNEY STONE). TECHNIQUE: Unenhanced CT imaging of the abdomen and pelvis was performed. 2-D reformats are created and submitted for interpretation. Automatic exposure controls were utilized to optimize patient dose. INDICATION: Fever and back pain. COMPARISON: 08/10/2019 FINDINGS: Lower chest: The lung bases are clear. No pericardial or pleural effusion. Peritoneum: No free intraperitoneal air or fluid. Liver and biliary system: Unenhanced liver is normal. The gallbladder is normal. No biliary duct dilation. Spleen and Pancreas: Spleen is normal. Unenhanced pancreas is grossly normal. Adrenals: Normal. tract: A nonobstructing 9 mm stone is present in the central intrarenal pelvis on the left. Left perinephric and periureteral stranding is present without ureteral stone. This is likely due to ascending infection and potential pyelonephritis. A low-attenuation cyst in the mid left kidney is stable in appearance measuring approximately 2.7 cm. Right-sided renal cyst is also stable. No right renal stones. Urinary bladder is decompressed and thus suboptimally evaluated. Hysterectomy. No adnexal mass. GI tract: Stomach is decompressed. No bowel obstruction. No pericolonic inflammatory changes. Appendix appears normal. Vasculature and Lymph nodes: Normal caliber aorta. No abdominal or pelvic lymphadenopathy. Musculoskeletal: No concerning osseous lesion. IMPRESSION: 1. CT features suggest left-sided pyelonephritis. 2. There is a nonobstructing 8 mm stone in the lower pole of the left kidney. No ureteral stones or obstructive uropathy. Dictated by: Dictated on workstation # [id number]
[2023-01-29] MEDS ORDERED: fentaNYL INJ 100 MCG/2 ML AMP IVP STA (14:53)
[2023-01-29 18:44] LABS: AMPHETAMINE SCREEN, URINE NEGATIVE (NEGATIVE); BARBITURATE SCREEN URINE NEGATIVE (NEGATIVE); BENZODIAZEPINES SCREEN URINE NEGATIVE (NEGATIVE); CANNABINOID SCREEN, URINE NEGATIVE (NEGATIVE); COCAINE SCREEN URINE NEGATIVE (NEGATIVE); METHADONE STAT NEGATIVE (NEGATIVE); OPIATE SCREEN URINE NEGATIVE (NEGATIVE); OXYCODONE STAT NEGATIVE (NEGATIVE); PROPOXYPHENE STAT NEGATIVE (NEGATIVE); TRICYCLIC ANTIDEPRESSANTS SCRE NEGATIVE (NEGATIVE)
--- NOTE | 2023-01-29 19:49 | Anesthesia-Procedure Note ---
Procedures/Interventions Procedure Start/Stop/Diagnosis Date of Procedure: Jan 29, 2023 Start Time: 19:00 Stop Time: 19:35 Lumbar Puncture Discussed Risk,Benefits: Yes Patient Consents: Yes Position: Lying, Left Sterile Technique: Yes Opening Pressure: 25 Fluid Color: clear Spinal Needle Used: Other (25g pencan 5inch) Procedure Notes Site attempts x 1. Multiple needle redirection. Tolerated procedure well. SUKUMAR MONCADA CRNA Jan 29, 2023 19:49
[2023-01-29 19:54] LABS: WHITE BLOOD CELL,CSF 0.004 10^3/uL (0-0.005)
[2023-01-29 19:56] LABS: APPEARANCE,CSF CLEAR; COLOR,CSF COLORLESS; CSF TUBE NUMBER 4
[2023-01-29] MEDS ORDERED: DOXYCYCLINE INJECTION 100 MG in NS (IVPB) 100 ML IV ONE (20:00)
[2023-01-29 20:23] LABS: CSF GLUCOSE 62 MG/DL (50-80); CSF TOTAL PROTEIN 42 MG/DL (15-40)
[2023-01-29 21:11] VITALS: BP 141/78
[2023-01-29] MEDS ORDERED: NS IV 1000 ML 1,000 ML ONE (21:23)
[2023-01-29] MEDS: NS IV 1000 ML 1,000 ML IV SCH (21:30)
[2023-01-29] MEDS ORDERED: ACETAMINOPHEN 500 MG TAB (TYLENOL) ONE (21:58)
[2023-01-29] MEDS ORDERED: ONDANSETRON 4 MG/2 ML (SDV) Z0FRAN ONE (21:59)
[2023-01-29] MEDS: ACETAMINOPHEN 500 MG TAB (TYLENOL) PO PRN (22:00)
[2023-01-29] MEDS: ONDANSETRON 4 MG/2 ML (SDV) Z0FRAN IV PRN (22:00)
[2023-01-30] VITALS (7 sets, daily range): BP systolic 102–130; BP diastolic 58–72
[2023-01-30] MEDS: IBUPROFEN 800 MG (MOTRIN) TAB PO PRN ×2 (03:59→15:19)
[2023-01-30] MEDS: NS IV 1000 ML 1,000 ML IV SCH ×3 (04:01→22:59)
[2023-01-30] MEDS: ACETAMINOPHEN 500 MG TAB (TYLENOL) PO PRN ×2 (05:22→16:24)
[2023-01-30 06:09] LABS: BASOPHILS % (AUTO) 1 % (0-10); EOSINOPHILS % (AUTO) 0 % (0-10); HEMATOCRIT 32 % (35-52); HEMOGLOBIN 9.9 g/dL (11.5-16.0); LYMPHOCYTES # (AUTO) 1.2 10^3/uL (1.0-4.0); LYMPHOCYTES % (AUTO) 15 % (12-44); MEAN CORPUSCULAR HEMOGLOBIN 23 pg (25-34); MEAN CORPUSCULAR HGB CONC 31 g/dL (32-36); MEAN CORPUSCULAR VOLUME 74 fL (80-99); MEAN PLATELET VOLUME 10.1 fL (9.0-12.2); MONOCYTES % (AUTO) 13 % (0-12); NEUTROPHILS # (AUTO) 5.7 10^3/uL (1.8-7.8); NEUTROPHILS % (AUTO) 71 % (42-75); PLATELET COUNT 193 10^3/uL (130-400); WHITE BLOOD COUNT 8.1 10^3/uL (4.3-11.0)
[2023-01-30 06:27] LABS: CALCIUM 8.2 MG/DL (8.5-10.1); CREATININE SERUM 0.73 MG/DL (0.60-1.30); POTASSIUM 3.4 MMOL/L (3.6-5.0)
[2023-01-30] MEDS: DOXYCYCLINE INJECTION 100 MG in NS (IVPB) 100 ML IV SCH ×2 (08:15→20:39)
--- NOTE | 2023-01-30 11:23 | History & Physical-Hospitalist ---
History of Present Illness HPI/Chief Complaint Pt is a 37yoCF who presented to the ER due to fever and headache. She states she woke up yesterday at 2am with a headache but after sleeping further it improved. She actually did a workup at 4am with her child and felt fine. After that she developed subjective fever aroudn 10am at work and went home. She was chilling a nd just overall didn't feel well. Her daughter checked her temperature and it was "high" and her fiance brought her to the ER. She also complains of nausea and vomiting that has started in this timeframe. Source: patient Date Seen 01/30/23 Time Seen by a Provider: 09:45 Attending Physician No,Local Physician PCP Admitting Physician: Brandon Gunter MD Attending Physician: Brandon Gunter MD Referring Physician Date of Admission Jan 29, 2023 at 21:14 Home Medications & Allergies Home Medications Reviewed patient Home Medication Reconciliation performed by pharmacy medication reconciliations electronic development technician and/or nursing. Patients Allergies have been reviewed. Allergies Allergies Coded Allergies Iodinated Contrast Media (Verified Allergy, Unknown, Anaphylaxis, 10/12/20) shellfish derived (Verified Allergy, Unknown, 10/12/20) Past Ebnztva-Anccuw-Dqtjdz Hx Patient Social History Tobacco Use?: No Smoking Status: Never a Smoker Use of E-Cig and/or Vaping dev: No Substance use?: No Alcohol Use?: Yes Alcohol Frequency: Once in a while Pt feels they are or have been: No Immunizations Up To Date Tetanus Booster (TDap): Unknown Seasonal Allergies Seasonal Allergies: No Current Status Advance Directives: No Communicates: Verbally Primary Language: Chinese Preferred Spoken Language: Chinese Is interpretation needed?: No Implanted or Applied Medical D: None Past Medical History Surgeries: Appendectomy, Hysterectomy Currently Using CPAP: No Currently Using BIPAP: No SODA JERKER History: Hysterectomy Anxiety Blood Disorders: No Review of Systems Constitutional: see HPI Physical Exam Physical Exam Vital Signs Vital Signs - First Documented 01/29/23 12:56 Temp 41.0 Pulse 124 Resp 22 B/P (MAP) 125/71 (89) Pulse Ox 99 O2 Delivery Room Air Capillary Refill : Less Than 3 Seconds Height, Weight, BMI Height: '" Weight: lbs. oz. kg; 39.76 BMI Method: General Appearance: No Apparent Distress, Obese Respiratory: Lungs Clear, No Respiratory Distress Cardiovascular: Regular Rate, Rhythm, No Murmur Gastrointestinal: Normal Bowel Sounds, Non Tender, Soft Neurologic/Psychiatric: Alert, Oriented x3 Results Results/Procedures Labs Laboratory Tests 01/29/23 13:00 01/30/23 05:12 Patient resulted labs reviewed. Assessment/Plan Admission Diagnosis Fever Admission Status: Observation Assessment and Plan Fever headache LP done in ER- CSF no consistent with meningitis Fever improving today (last fever at 0522 today) Continue IV abx Await cultures Tick panel pending Will call [facility] to get recs on further testing but typically they wait for initial tick panel to come back first Spoke with her PCP Dr Betancourt this AM to inform of admission DVT ppx: Ambulation and SCDs THUY PRAKASH MD Jan 30, 2023 11:23
[2023-01-30] MEDS: ONDANSETRON 4 MG/2 ML (SDV) Z0FRAN IV PRN (11:31)
[2023-01-30] MEDS: PROMETHAZINE INJ 25 MG/ML (PHENERGAN) AMP IVP PRN (11:49)
[2023-01-30] MEDS ORDERED: cefTRIAXone 1 GM/NS 50 ML IVPB IV SCH ×2 (14:00)
[2023-01-30] MEDS ORDERED: TRAZ-227 PO (15:18)
[2023-01-30] MEDS ORDERED: KETOROLAC 15 MG/ML VIAL IVP NR (17:00)
[2023-01-30] MEDS: CEFEPIME INJECTION 1,000 MG in NS (IVPB) 50 ML IV SCH ×2 (17:08→22:56)
[2023-01-31] VITALS (7 sets, daily range): BP systolic 92–126; BP diastolic 66–82
[2023-01-31] MEDS: ACETAMINOPHEN 500 MG TAB (TYLENOL) PO PRN (03:18)
[2023-01-31] MEDS: ONDANSETRON 4 MG/2 ML (SDV) Z0FRAN IV PRN (03:28)
[2023-01-31] MEDS: CEFEPIME INJECTION 1,000 MG in NS (IVPB) 50 ML IV SCH ×4 (04:37→22:58)
[2023-01-31 05:52] LABS: HEMATOCRIT 28 % (35-52); HEMOGLOBIN 8.8 g/dL (11.5-16.0); MEAN CORPUSCULAR HEMOGLOBIN 23 pg (25-34); MEAN CORPUSCULAR HGB CONC 31 g/dL (32-36); MEAN CORPUSCULAR VOLUME 74 fL (80-99); MEAN PLATELET VOLUME 9.9 fL (9.0-12.2); PLATELET COUNT 168 10^3/uL (130-400); WHITE BLOOD COUNT 6.4 10^3/uL (4.3-11.0)
[2023-01-31 06:05] LABS: POTASSIUM 3.3 MMOL/L (3.6-5.0)
[2023-01-31 06:06] LABS: CALCIUM 8.2 MG/DL (8.5-10.1)
[2023-01-31 06:10] LABS: CREATININE SERUM 0.69 MG/DL (0.60-1.30)
[2023-01-31] MEDS: NS IV 1000 ML 1,000 ML IV SCH ×2 (06:43→18:23)
[2023-01-31] MEDS: DOXYCYCLINE INJECTION 100 MG in NS (IVPB) 100 ML IV SCH ×2 (08:55→20:24)
[2023-01-31] MEDS: POTASSIUM CL 10MEQ/50ML IVPB 50 ML IV SCH ×4 (10:12→13:48)
[2023-01-31] MEDS: PROMETHAZINE INJ 25 MG/ML (PHENERGAN) AMP IVP PRN (10:13)
[2023-01-31] MEDS: IBUPROFEN 800 MG (MOTRIN) TAB PO PRN ×2 (10:14→18:58)
--- NOTE | 2023-01-31 10:39 | Physical Therapy Progress Note ---
Therapy Progress Note Pt in bed, sheets pulled up, washcloth over her eyes. Pt reported she is not feeling well with increased DONIS. Declined PT evaluation at this time. PT will attempt later this date as time allows. AMY GROVER DPT Jan 31, 2023 10:39
[2023-01-31] MEDS: CIPROFLOXACIN IV 400MG/200ML 200 ML IV SCH ×2 (10:58→21:33)
--- NOTE | 2023-01-31 12:24 | Progress Note - Hospitalist ---
Subjective HPI/CC On Admission Date Seen by Provider: Jan 31, 2023 Pt is a 37yoCF who presented to the ER due to fever and headache. She states she woke up yesterday at 2am with a headache but after sleeping further it improved. She actually did a workup at 4am with her child and felt fine. After that she developed subjective fever aroudn 10am at work and went home. She was chilling and just overall didn't feel well. Her daughter checked her temperature and it was "high" and her fiance brought her to the ER. She also complains of nausea and vomiting that has started in this timeframe. Subjective/Events-last exam Pt reports persistent headache. Last fever yesterday afternoon though. Still not much of an appetite and not really feeling much better. SO at bedside and states DONIS is her worst problem today. Discussed tick panel prelim results with them and plan to cover with Levaquin as she is no better with 2 days of doxycycline. Focused Exam Lactate Level 01/29/23 13:00: Lactic Acid Level 1.03 Objective Exam Vital Signs Vital Signs Date Time Temp Pulse Resp B/P (MAP) Pulse Ox O2 Delivery O2 Flow Rate FiO2 01/31/23 08:14 36.8 84 18 92/66 (75) 96 Room Air Capillary Refill : Less Than 3 Seconds General Appearance: Other (appears to not feel well) Respiratory: Lungs Clear Cardiovascular: Regular Rate, Rhythm Gastrointestinal: Normal Bowel Sounds, Soft Neurologic/Psychiatric: Alert, Oriented x3 Results/Procedures Lab Laboratory Tests 01/31/23 05:20 Patient resulted labs reviewed. Assessment/Plan Assessment and Plan Assess & Plan/Chief Complaint Fever headache LP done in ER- CSF no consistent with meningitis and culture pending Last fever 1816 yesterday Continue IV abx Blood cultures with NGTD Urine culture pending UA not consistent with UTI but CT with ?pyelonephritis so changed to Cefepime yesterday Tick panel with equivocal tularemia results Given occasional failure with Doxycyline will add Levaquin to cover (going to continue doxy for now until other test back on tick panel) [facility] said no further testing for tick borne illness needed at this time unless she develops leukopenia or thrombocytopenia Spoke with her PCP Dr Betancourt on admission DVT ppx: Ambulation and SCDs THUY PRAKASH MD Jan 31, 2023 12:24
--- NOTE | 2023-01-31 13:29 | Progress Note ---
Standard Progress Note Progress Notes/Assess & Plan Date Seen by a Provider: Jan 31, 2023 Time Seen by a Provider: 13:00 Progress/Assessment & Plan Called by Dr. Rodas to assess pt post LP from 01/29 who still complains of a headache today. I visited with pt. 01/30 in am regarding possible blood patch. After further discussion with patient, we elected to follow up on Thursday and not blood patch. Pt was initially admitted with fever and H/A. My colleague completed the LP with a 25G spinal needle and withdrew aprox 5cc of CSF. I advised pt that post dural puncture H/A from LP with a 25G would be less than 3%. Pt was not interested in a blood patch on Thursday. Pt was sound asleep when I entered the room this afternoon to discuss her H/A again with nurse at bedside. Pt was very sleepy during our conversation but she advised her H/A did not worsen anymore sitting up than when she just turns in bed. She also stated again she didn't think her H/A was blood patch related. I advised pt of the risks and benefits of a blood patch and we both agreed to wait and re evaluate on Thursday. Focused Exam Lactate Level 01/29/23 13:00: Lactic Acid Level 1.03 INDIO KIRBY CRNA Jan 31, 2023 13:29
--- NOTE | 2023-01-31 14:50 | Physical Therapy Evaluation ---
PT Evaluation-General Medical Diagnosis Admission Date Jan 29, 2023 at 21:14 Medical Diagnosis: fever, DONIS Onset Date: Jan 29, 2023 Therapy Diagnosis Therapy Diagnosis: weakness Precautions Precautions/Isolations: Fall Prevention, Standard Precautions Weight Bear Status Right Lower Extremity: Right Full Weight Bearing Left Lower Extremity: Left Full Weight Bearing Referral Physician: Adrianna Reason for Referral: Evaluation/Treatment Medical History Current History Pt presented to ED with fever and DONIS, N/V; recent tick bite Reviewed History: Yes Social History Home: Single Level Current Living Status: Significant Other Entry Into Home: Stairs With Railing PT Steps Into Home: 3 Prior Prior Level of Function SCALE: Activities may be completed with or without assistive devices. 7-Euvxfbehsf-oexccfn completes the activity by him/herself with no assistance from a helper. 5-Set-up or Clean-up Assistance-helper sets up or cleans up; patient completes activity. [place] assists only prior to or following the activity. 4-Supervision or Touching Assistance-helper provides verbal cues and/or touching/steadying and/or contact guard assistance as patient completes activity. Assistance may be provided throughout the activity or intermittently. 3-Partial/Moderate Assistance-helper does LESS THAN HALF the effort. [place] lifts, holds or supports trunk or limbs, but provides less than half the effort. 2-Substantial/Maximal Assistance-helper does MORE THAN HALF the effort. [place] lifts or holds trunk or limbs and provides more than half the effort. 6-Xyevhygkr-tmixhr does ALL the effort. Patient does none of the effort to complete the activity. Or, the assistance of 2 or more helpers is required for the patient to complete the activity. If activity was not attempted, code reason: 7-Patient Refused. 9-Not Applicable-not attempted and the patient did not perform the activity before the current illness, exacerbation or injury. 10-Not Attempted due to Environmental Limitations-(lack of equipment, weather restraints, etc.). 88-Not Attempted due to Medical Conditions or Safety Concerns. Bed Mobility: 6 Transfers (B,C,W/C): 6 Gait: 6 Stairs: 6 Wheelchair Mobility: 9 Indoor Mobility (Ambulation): Independent Stairs: Independent Prior Devices Use: None Pt works at [employer] in [place] PT Evaluation-Current Subjective Pt agreeable. "The pain meds are still working right now so we can do it". During gait, Pt paused due to increased DONIS pain but not rated. Objective Patient Orientation: Person, Place, Time, Situation Attachments: IV ROM/Strength ROM Upper Extremities WFL for mobility ROM Lower Extremities WFL for mobility Strength Upper Extremities WFL for mobility Strength Lower Extremities grossly 3+/5 Integumentary/Posture Integumentary See nurses' notes Bowel Incontinence: No Bladder Incontinence: No Posture Normal Neuromuscular (Tone, Coordination, Reflexes) Intact Sensory Vision: Functional Hearing: Functional Transfers Roll Left to Right (QC): 6 Sit to Lying (QC): 6 Lying to Sitting/Side of Bed(Q: 6 Sit to Stand (QC): 4 (I) bed mobility. Min A x 1 sit->stand to FWW with increased effort on the Pt's part Gait Does the Patient Walk?: Yes Mode of Locomotion: Walk Anticipated Mode of Locomotion: Walk Walk 10 feet (QC): 4 Walk 50 ft with 2 Turns(QC): 4 Walk 150 ft (QC): 88 Walking 10ft/uneven surface-QC: 88 Distance: 125 Gait Assistive Device: FWW Comments/Gait Description Pt ambulated with very slow, deliberate gait with FWW this date. Utilizing FWW this date, reporting legs felt weak. Pt declined further ambulation this date due to increased DONIS pain. Wheelchair Training Does the Pt Use a Wheelchair?: No Type of Wheelchair: N/A Balance Sitting Static: Normal Sitting Dynamic: Normal Standing Static: Good Standing Dynamic: Good Treatment Eval. Pt returned to bed with all needs met. Assessment/Needs Pt would benefit from skilled PT to restore functional strength and (I) with functional mobility. Rehab Potential: Good PT Short Term Goals Short Term Goals Time Frame: Feb 04, 2023 Sit to stand: 6 Chair/lbo-gv-zuvuv transfer: 6 Toilet transfer: 6 PT Shelter Goals Lead Pony Rider Goals PT Lead Pony Rider Goals Time Frame: Feb 07, 2023 Roll Left & Right (QC): 6 Sit to Lying (QC): 6 Lying-Sitting on Side/Bed(QC): 6 Sit to Stand (QC): 6 Chair/Koe-hd-Ihqdi Xfer(QC): 6 Toilet Transfer (QC): 6 Car Transfer (QC): 6 Does the Patient Walk: Yes Walk 10 feet (QC): 6 Walk 50ft with 2 Turns (QC): 6 Walk 150 ft (QC): 6 Walking 10ft on Uneven Surface: 6 1 Step (curb) (QC): 6 4 Steps (QC): 6 Does the Pt use WC or Scooter?: No Type: N/A Type: N/A PT goals established to allow safe return to home and work. PT Plan Problem List Problem List: Activity Tolerance, Functional Strength, Safety, Balance, Gait, Transfer Treatment/Plan Treatment Plan: Continue Plan of Care Treatment Plan: Education, Functional Activity Iris, Functional Strength, Gait, Safety, Therapeutic Exercise, Transfers Treatment Duration: Feb 07, 2023 Frequency: 6 times per week Estimated Hrs Per Day: .25 hour per day Patient and/or Family Agrees t: Yes Safety Risks/Education Teaching Recipient: Patient Teaching Methods: Discussion Response to Teaching: Verbalize Understanding PT POC Time Time In: 1410 Time Out: 1428 DATE: Jan 31, 2023 Total Billed Treatment Time: 18 Total Billed Treatment 1, AMY GUZMAN DPSheri Jan 31, 2023 14:50
[2023-01-31] MEDS ORDERED: CYCLOBENZAPRINE 10 MG (FLEXERIL) TAB PO PRN (23:15)
[2023-02-01] MEDS: fentaNYL INJ 100 MCG/2 ML AMP IVP PRN ×3 (01:07→11:11)
[2023-02-01 04:45] VITALS: BP 103/62
[2023-02-01] MEDS: CEFEPIME INJECTION 1,000 MG in NS (IVPB) 50 ML IV SCH ×4 (04:50→22:58)
[2023-02-01] MEDS: IBUPROFEN 800 MG (MOTRIN) TAB PO PRN ×2 (04:50→18:05)
[2023-02-01 05:46] LABS: HEMATOCRIT 27 % (35-52); HEMOGLOBIN 8.3 g/dL (11.5-16.0); MEAN CORPUSCULAR HEMOGLOBIN 23 pg (25-34); MEAN CORPUSCULAR HGB CONC 31 g/dL (32-36); MEAN CORPUSCULAR VOLUME 75 fL (80-99); MEAN PLATELET VOLUME 10.1 fL (9.0-12.2); PLATELET COUNT 190 10^3/uL (130-400)
[2023-02-01 05:55] LABS: POTASSIUM 3.7 MMOL/L (3.6-5.0)
[2023-02-01 05:57] LABS: CALCIUM 8.3 MG/DL (8.5-10.1)
[2023-02-01 06:01] LABS: CREATININE SERUM 0.64 MG/DL (0.60-1.30)
[2023-02-01] MEDS: DOXYCYCLINE INJECTION 100 MG in NS (IVPB) 100 ML IV SCH ×2 (08:40→20:47)
[2023-02-01] MEDS: NS IV 1000 ML 1,000 ML IV SCH ×2 (08:40→22:02)
[2023-02-01] MEDS: CIPROFLOXACIN IV 400MG/200ML 200 ML IV SCH ×2 (08:48→21:56)
[2023-02-01 08:50] VITALS: BP 116/83
[2023-02-01] MEDS ORDERED: diphenhydrAMINE 50 MG/ML INJ (BENADRYL) IVP PRN (09:30)
[2023-02-01] MEDS ORDERED: diphenhydrAMINE 50 MG/ML INJ (BENADRYL) IVP NR (09:30)
--- NOTE | 2023-02-01 09:54 | Progress Note - Hospitalist ---
Subjective HPI/CC On Admission Date Seen by Provider: Feb 01, 2023 Pt is a 37yoCF who presented to the ER due to fever and headache. She states she woke up yesterday at 2am with a headache but after sleeping further it improved. She actually did a workup at 4am with her child and felt fine. After that she developed subjective fever aroudn 10am at work and went home. She was chilling and just overall didn't feel well. Her daughter checked her temperature and it was "high" and her fiance brought her to the ER. She also complains of nausea and vomiting that has started in this timeframe. Subjective/Events-last exam Pt reports headache worsening overnight. SO at bedside states was 13-15/10 on the pain scale and worse with any movement. We discussed encouraging signs that she no longer has a fever but concern that headache is progressing. Discussed plan to review with Neurology at [place] and she consents to this to expand work up. She also now states that she noticed a few weeks ago that she had some left axillary lymphadenopathy. She was going to be seen for this but it got better so she didn't She reports this happens from time to time and improves on its on. Does not think it is currently there. Focused Exam Lactate Level 01/29/23 13:00: Lactic Acid Level 1.03 Objective Exam Vital Signs Vital Signs Date Time Temp Pulse Resp B/P (MAP) Pulse Ox O2 Delivery O2 Flow Rate FiO2 02/01/23 08:50 36.8 84 18 116/83 (94) 97 Room Air Capillary Refill : Less Than 3 Seconds General Appearance: Chronically ill, Obese, Other (appears to not feel well) Respiratory: Lungs Clear, No Respiratory Distress Cardiovascular: Regular Rate, Rhythm, No Murmur Neurologic/Psychiatric: Alert, Oriented x3 Lymphatic: Other (no axillary nodes appreciated on exam of left axilla) Results/Procedures Lab Laboratory Tests 02/01/23 05:32 Patient resulted labs reviewed. Assessment/Plan Assessment and Plan Assess & Plan/Chief Complaint Fever- resolved headache- persistent LP done in ER- CSF not consistent with meningitis and culture pending Last fever around 36 hours ago Continue IV abx for now Blood cultures with NGTD Urine culture pending Tick panel with equivocal tularemia results, other results pending [facility] said no further testing for tick borne illness needed at this time unless she develops leukopenia or thrombocytopenia Headache worsening since admission, now requiring IV opoids to alleviate pain Spoke with anesthesia yesterday who reevaluated patient regarding potential need for blood patch but deemed not appropriate candidate and low chance of improvement Spoke with Neurology at [place] given her hormone replacement and persistent headache and concern for sinus venous thrombosis, he agreed with plan for CT Jason ogram- recommended deferring Lovenox until study Spoke with Dr Gibson from Radiology given history of allergy to contrast (listed as anaphylaxis) but patient reports she had had contrast in 2020 without issue after premedication with Benadryl (also appears to have had contrast in 2019 here) Will premedicate with Benadryl and RN and lead technical architect aware of history DVT ppx: Ambulation and SCDs THUY PRAKASH MD Feb 01, 2023 09:54
[2023-02-01] MEDS ORDERED: IOHEXOL 350 MG/ML 100 ML (OMNIPAQUE 350) VIAL IV ONE (10:45)
[2023-02-01] MEDS ORDERED: NS 100 ML (IVPB) BAG IV ONE (10:45)
[2023-02-01] MEDS ORDERED: HOLD METFORMIN - RECEIVED CONTRAST 20 ML VIAL IV SCH (10:45)
[2023-02-01] MEDS: PROMETHAZINE INJ 25 MG/ML (PHENERGAN) AMP IVP PRN (11:11)
[2023-02-01 12:00] VITALS: BP 113/75
--- NOTE | 2023-02-01 12:33 | Diagnostic Imaging Report ---
PROCEDURE: CT angiography of the head and CT angiography of the neck with and without contrast. TECHNIQUE: Contiguous noncontrast images were obtained from the skull base through the vertex. After intravenous contrast administration, helical CT angiography of the neck was performed. Source data was reformatted into 3D MIP projections. Delayed post contrast acquisition was also obtained. Auto Exposure Controls were utilized during the CT exam to meet ALARA standards for radiation dose reduction. INDICATION: Headache. COMPARISON: Head CT 01/29/2023. DISCUSSION: CT HEAD: No acute intracranial hemorrhage, mass, midline shift, or hydrocephalus. The ventricles and sulci are normal size and configuration for age. The visualized portions of the orbits, paranasal sinuses, mastoid air cells, and calvarium are unremarkable. CTA HEAD: Intracranial arterial luminal enhancement and morphology are normal without focal stenosis, major vessel cut off, aneurysm, or vascular malformation. The [place] of [place] is complete. Visualized venous structures are unremarkable. CTA NECK: The arch has conventional branch configuration. The vertebral arteries are codominant. The carotid arteries bifurcate midneck without focal stenosis, vessel cut off, or vascular malformation within the neck. The visualized soft tissues are unremarkable. IMPRESSION: Unremarkable CTA of the head and neck. Dictated by: Dictated on workstation # [id number]
--- NOTE | 2023-02-01 12:33 | Progress Note ---
Standard Progress Note Progress Notes/Assess & Plan Date Seen by a Provider: Feb 01, 2023 Time Seen by a Provider: 12:24 Progress/Assessment & Plan I visited with pt and family at bedside regarding an epidural blood patch. Pt was admitted with a headache prior to LP, which she states has not changed since admit. Following a brief conversation regarding her symptoms and the process of an epidural blood patch, pt and family declined. I will be available if conditions and opinions change. Focused Exam Lactate Level 01/29/23 13:00: Lactic Acid Level 1.03 DOUGIE WOODS CRNA Feb 01, 2023 12:33
[2023-02-01 16:04] VITALS: BP 124/85
[2023-02-01 19:53] VITALS: BP 131/77
[2023-02-02 00:31] VITALS: BP 114/73
[2023-02-02 03:37] VITALS: BP 126/69
[2023-02-02] MEDS: NS IV 1000 ML 1,000 ML IV SCH (03:44)
[2023-02-02] MEDS: CEFEPIME INJECTION 1,000 MG in NS (IVPB) 50 ML IV SCH (04:50)
[2023-02-02 05:24] LABS: HEMATOCRIT 29 % (35-52); HEMOGLOBIN 8.8 g/dL (11.5-16.0); MEAN CORPUSCULAR HEMOGLOBIN 23 pg (25-34); MEAN CORPUSCULAR HGB CONC 31 g/dL (32-36); MEAN CORPUSCULAR VOLUME 74 fL (80-99); MEAN PLATELET VOLUME 9.9 fL (9.0-12.2); PLATELET COUNT 214 10^3/uL (130-400)
[2023-02-02 05:39] LABS: POTASSIUM 3.5 MMOL/L (3.6-5.0)
[2023-02-02 05:40] LABS: CALCIUM 8.8 MG/DL (8.5-10.1)
[2023-02-02 05:45] LABS: CREATININE SERUM 0.67 MG/DL (0.60-1.30)
--- NOTE | 2023-02-02 07:58 | Discharge Summary ---
Diagnosis/Chief Complaint Date of Admission January 27, 2023 Date of Discharge February 02, 2023 Discharge Date: Feb 02, 2023 Admission Diagnosis Admission Diagnosis 1. Febrile illness 2. Headache Discharge Diagnosis 1. Clinically viral meningitis 2. Headache secondary to #1 3. Febrile illness secondary to #1 Reason Hospital Visit Pt is a 37yoCF who presented to the ER due to fever and headache. She states she woke up yesterday at 2am with a headache but after sleeping further it improved. She actually did a workup at 4am with her child and felt fine. After that she developed subjective fever aroudn 10am at work and went home. She was chilling and just overall didn't feel well. Her daughter checked her temperature and it was "high" and her fiance brought her to the ER. She also complains of nausea and vomiting that has started in this timeframe. Discharge Summary Hospital Course Was the Problem List Reviewed?: Yes Hospital Course Patient was admitted on January 27, 2023 after being evaluated in the emergency department for fever and headache. She ultimately underwent a battery of laboratory testing. She also had lumbar puncture performed in the emergency department due to the headache and noted nuchal rigidity per emergency room provider. She was initially placed on empiric antibiotics until blood cultures and CSF culture reports were available. There was also the question of a tick bite. She had full tick panel performed with results for 2 pending at time of dismissal. Labs Procedures lumbar puncture in the emergency department Discharge Physical Examination Allergies: Coded Allergies: Iodinated Contrast Media (Verified Allergy, Unknown, Anaphylaxis, 10/12/20) shellfish derived (Verified Allergy, Unknown, 10/12/20) Vitals & I&Os General Appearance: Alert, Oriented X3 HEENT: Other (No nuchal rigidity full range of motion) Respiratory: Clear to Auscultation Cardiovascular: Regular Rate Abdominal: Soft Skin: No Rashes Neuro: Normal Gait, Normal Speech Psych/Mental Status: Mental Status NL Discussion & Recommendations we discussed her hospital course this morning on February 02, 2023. She will follow- up in my office within 2-3 days and hopefully at that time the remaining tests for tick will be back. The blood culture is also preliminary negative. she will remain on ciprofloxacin 500 mg twice daily until the final tick panel results are available. Discharge Home Medications Reviewed and agree with Discharge Medication list on patient's Discharge Instruction sheet Instructions to Patient/Family Please see electronic discharge instructions given to patient. VIRGIL SHAFFER MD Feb 02, 2023 07:58
[2023-02-02 08:00] VITALS: BP 118/78
[2023-02-02] MEDS ORDERED: CIPR-225 PO (08:01)
--- NOTE | 2023-02-02 08:04 | Discharge Inst-Simple/Standard ---
Discharge Inst-Standard Reconcile Patient Problems Problems Reviewed?: Yes Discharge Medications New, Converted or Re-Newed RX: Transmitted to Pharmacy Patient Instructions/Follow Up Plan of Care/Instructions/FU: Follow-up with Dr. Shaffer in 3 days Activity as Tolerated: Yes Discharge Diet: Regular Diet Return to The Hospital For: If fever should return with neck pain. Unable to hold any fluids down. VIRGIL SHAFFER MD Feb 02, 2023 08:03
--- NOTE | 2023-02-02 08:22 | Physical Therapy Progress Note ---
Therapy Progress Note Patient declined further PT intervention due to up independently and she reports she is going home. PT to dismiss patient from services at this time. JOEL REED PT Feb 02, 2023 08:22
[2023-02-02] MEDS: CIPROFLOXACIN IV 400MG/200ML 200 ML IV SCH (08:30)
[2023-02-02] MEDS: DOXYCYCLINE INJECTION 100 MG in NS (IVPB) 100 ML IV SCH (09:13)
[2023-02-02 10:19] VITALS: BP 118/78
--- NOTE | 2023-02-04 11:54 | Physician Query Clarification ---
PQ-Further Specificity Admission/Discharge Admission Date: Feb 01, 2023 at 09:44 Discharge Date: Feb 02, 2023 at 10:47 Dr. Shaffer, The medical record reflects the following clinical scenario: History/Risk Factors: fever, headache Clinical Findings: Tularemia antibody 1:20 Treatment: IV Ceftriaxone, IV Doxycycline Question: Can you further specify the etiology of the fever/headache per the clinical indicators above? Please document a response in the Progress Notes or Discharge Summary. 1. Tularemia 2. Fever/headache etiology undetermined 3. Other, with explanation of the clinical findings. 4. Clinically undetermined, no explanation for the clinical findings. PHYSICIAN RESPONSE Can you specify per above: Other, explanation/clinical finding (Clinically viral meningitis. Patient had nuchal rigidity in the emergency department with significant headache that was unusual for her) In responding to this query, please exercise your independent professional judgment. The purpose of this communication is to more accurately reflect the complexity of your patients condition. The fact that a question is asked does not imply that any particular answer is desired or expected. Thank you for your timely response to this clarification. Requestors name: Yaniv THIS PHYSICIAN QUERY FORM IS A PERMANENT PART OF THE MEDICAL RECORD YANIV LICONA Feb 04, 2023 11:54 VIRGIL SHAFFER MD Feb 18, 2023 22:37
== END 2023-02-02 10:47 | disposition home or self-care (01) | DRG 76 ==
LOC: EDUNIT# 12:50 → ER 12:52 → 4TH 21:14 → OBSVTOIN 02-01 09:44
PROVIDERS: ADMIT Internal Medicine; ATTEND Family Medicine
PROC: 009U3ZX Drainage of Spinal Canal, Percutaneous Approach, Diagnostic (ICD-10-PCS; principal; 2023-01-29)
DX: A87.9 Viral meningitis, unspecified (principal); F41.9 Anxiety disorder, unspecified; Z79.899 Other long term (current) drug therapy; Z91.041 Radiographic dye allergy status
CPT/HCPCS: 36415; 70450; 70496; 70498; 71045; 74176; 80048; 80053; 80306; 81000; 82945; 83605; 84157; 85025; 85027; 85610; 85730; 86141; 86618; 86666; 86668; 86757; 86788; 86789; 87040; 87070; 87088; 87205; 87498; 87636; 89051; G0378